=== PATIENT | male | born 1970 | race Caucasian/White ===

== ENCOUNTER 2019-07-25 03:56 | Inpatient (IN) ==
[2019-07-25] MEDS ORDERED: SODIUM CHLORIDE 0.9% 1,000 ML IV STA ×2 (03:58→04:02)
[2019-07-25] MEDS ORDERED: NOREPINEPHRINE 8 MG in SODIUM CHLORIDE 0.9% 242 ML IV PRN (04:23)
[2019-07-25] MEDS ORDERED: NOREPINEPHRINE 4 MG/4 ML VIAL IV ONE ×2 (04:25→04:28)
[2019-07-25 04:43] LABS: Basophils # 0.2 10*3/uL (0.0-0.2); Basophils % 0.7 % (0.0-0.8); Eosinophils # 0.2 10*3/uL (0.0-0.87); Eosinophils % 0.9 % (0.00-10.9); Hematocrit 46.9 VOL% (42.0-52.0); Immature Granulocytes % 3.3 %; Immature Granulocytes Absolute 0.76 #; Lymphocytes # 4.1 10*3/uL (1.4-4.0); Lymphocytes % 17.5 % (21.2-54.2); Mean Platelet Volume 10.2 FL (9.6-12.0); Monocytes % 15.6 % (1.7-12.7); NRBC # 0.02 10*3/uL; Platelet Count 513 T/CUMM (130-400); White Blood Count 23.3 T/CUMM (4-12)
[2019-07-25] MEDS ORDERED: CEFEPIME 2,000 MG in SODIUM CHLORIDE 0.9% 100 ML IV STA (04:50)
[2019-07-25] MEDS ORDERED: VANCOMYCIN INJ 1,000 MG in SODIUM CHLORIDE 0.9% 250 ML IV STA (04:50)
[2019-07-25 04:57] LABS: Band Neutrophils 3 % (0-10); Eosinophils 2 % (0-10); Lymphocytes 16 % (20-55); Platelet Estimate Adequate; Segmented Neutrophils 72 % (50-85); Total Cells Counted 100
[2019-07-25] MEDS ORDERED: CEFEPIME 2,000 MG VIAL ONE (05:21)
[2019-07-25 06:11] LABS: Alkaline Phosphatase 91 U/L (45-117)
[2019-07-25 06:12] LABS: Alanine Aminotransferase 31 U/L (16-61); Albumin 3.4 G/DL (3.4-5.0); Aspartate Amino Transferase 80 U/L (0-37); Bilirubin,Total 0.53 MG/DL (0.2-1.0); Total Protein 7.8 G/DL (6.4-8.3)
[2019-07-25 06:13] LABS: Blood Urea Nitrogen 22 MG/DL (7-18); Glucose 357 MG/DL (74-106); Osmolality,Calculated 271.2 MOS/KG (273-304)
[2019-07-25 06:15] LABS: Calcium 9.5 MG/DL (8.5-10.1)
[2019-07-25 06:55] LABS: Risk Ratio 9.97; VLDL CHOLESTEROL 428.4 MG/DL
[2019-07-25 06:57] LABS: Apearance,Urine CLEAR (Clear); Bilirubin,Urine Negative (Negative); Blood, Urine Moderate mg/dL (Negative); Glucose,Urine (UA) >=500 mg/dL (Negative); Ketones,Urine Negative (Negative); Mucus,Urine Occasional /LPF (Occasional); Nitrite,Urine Negative (Negative); Protein,Urine 30 MG/DL; Squamous Epithelial Cell,Urine Occasional /HPF (0-10); Urine Color Straw (Yellow); Urine Specific Gravity 1.008 (1.001-1.035); Urine Urobilinogen < 2.0 EU/DL (0.2-1.0); WBC,Urine 1 /HPF (0-6)
[2019-07-25] MEDS ORDERED: MORPHINE 4 MG/1 ML VIAL IV PRN (07:30)
[2019-07-25] MEDS ORDERED: ACETAMINOPHEN 325 MG TABLET PO PRN (07:30)
[2019-07-25] MEDS ORDERED: ALBUTEROL 2.5 MG/3 ML NEB RESP TX PRN (07:30)
[2019-07-25] MEDS ORDERED: ONDANSETRON 4 MG/2 ML VIAL IV PRN (07:30)
[2019-07-25] MEDS ORDERED: SODIUM CHLORIDE 0.9% 1,000 ML IV SCH ×2 (07:30→09:00)
[2019-07-25 07:49] LABS: Hemoglobin 16.2 GM/DL (14.0-18.0); Red Blood Count 4.69 MC/CUMM (3.8-5.5)
[2019-07-25 07:51] LABS: Mean Corpuscular HGB Conc 35.1 GM/DL (32-36); Mean Corpuscular Volume 98.5 FL (87-102); Red Cell Distribution Width 13.8 % (9.3-17.3)
[2019-07-25] MEDS ORDERED: FAMOTIDINE 20 MG/2 ML VIAL IV SCH ×2 (08:00→09:00)
[2019-07-25] MEDS ORDERED: VANCOMYCIN INJ 1,000 MG in SODIUM CHLORIDE 0.9% 250 ML IV ONE (08:00)
[2019-07-25 08:20] LABS: INR 0.9; Partial Thromboplastin Time 24.6 SECS (20.8-36.0)
[2019-07-25 08:21] LABS: PT Patient Result 9.5 SECS (9.6-12.2)
[2019-07-25 08:51] LABS: ABG Base Excess -0.8 MMOL/L (-2.5-2.5); ABG HCO3 23.7 MMOL/L (20-26); ABG PCO2 49.7 MM HG (35-48); ABG PH 7.329 (7.35-7.45); ABG TCO2 22.1 MMOL/L (23-27); Allen Test Positive
[2019-07-25] MEDS: DEXTROSE 5% NACL 0.9% 1,000 ML IV SCH ×4 (09:01→23:45)
[2019-07-25] MEDS: ENOXAPARIN 40 MG/0.4 ML SYRINGE SUBCUT SCH (10:14)
[2019-07-25 10:20] LABS: Barbiturates Screen,Urine Negative (Negative); Benzodiazepines Screen,Urine Positive (Negative); Cannabinoid Screen,Urine Negative (Negative); Opiate Screen,Urine Positive (Negative); Phencyclidine Screen,Urine Negative (Negative)
[2019-07-25] MEDS: INSULIN REGULAR DRIP 100 ML IV PRN ×2 (10:28→22:03)
[2019-07-25] MEDS: PIPERACILLIN/TAZOBACTAM 3,375 MG in SODIUM CHLORIDE 0.9% 100 ML IV SCH ×2 (10:42→15:56)
[2019-07-25 10:56] LABS: Calcium 7.2 MG/DL (8.5-10.1); Osmolality,Calculated 282.4 MOS/KG (273-304)
[2019-07-25] MEDS: HYDROmorphone 2 MG/1 ML VIAL IV PRN ×4 (12:46→22:10)
[2019-07-25] MEDS ORDERED: CALCIUM GLUCONATE 2,000 MG in SODIUM CHLORIDE 0.9% 100 ML IV ONE (14:30)
[2019-07-25] MEDS: DESITIN 4OZ/NYSTATIN 15 GRAM MIXTURE PASTE TOP SCH ×2 (15:53→21:42)
[2019-07-25 17:31] LABS: Osmolality,Calculated 318.3 MOS/KG (273-304)
[2019-07-25 17:33] LABS: Calcium 7.9 MG/DL (8.5-10.1)
[2019-07-25] MEDS: LACTULOSE 20 GM/30 ML UDCUP PO SCH (21:02)
[2019-07-25] MEDS: PANTOPRAZOLE 40 MG VIAL IV SCH (21:03)
[2019-07-25] MEDS: DIAZEPAM 5 MG TABLET PO SCH (21:03)
[2019-07-25] MEDS ORDERED: VANCOMYCIN INJ 1,750 MG in SODIUM CHLORIDE 0.9% 500 ML IV SCH (22:00)
[2019-07-25 23:02] LABS: Calcium 7.7 MG/DL (8.5-10.1); Osmolality,Calculated 280.5 MOS/KG (273-304)
[2019-07-26] MEDS: PIPERACILLIN/TAZOBACTAM 3,375 MG in SODIUM CHLORIDE 0.9% 100 ML IV SCH ×4 (00:26→23:58)
[2019-07-26] MEDS ORDERED: NICOTINE 21 MG/24 HR PATCH TRANSDERM PRN (00:37)
[2019-07-26] MEDS: DEXTROSE 5% NACL 0.9% 1,000 ML IV SCH ×3 (00:39→10:05)
[2019-07-26] MEDS: HYDROmorphone 2 MG/1 ML VIAL IV PRN ×8 (01:20→23:55)
[2019-07-26 04:24] LABS: Basophils # 0.1 10*3/uL (0.0-0.2); Basophils % 0.5 % (0.0-0.8); Eosinophils # 0.2 10*3/uL (0.0-0.87); Eosinophils % 2.1 % (0.00-10.9); Hematocrit 42.7 VOL% (42.0-52.0); Immature Granulocytes % 1.7 %; Immature Granulocytes Absolute 0.18 #; Lymphocytes # 3.1 10*3/uL (1.4-4.0); Lymphocytes % 28.8 % (21.2-54.2); Mean Corpuscular HGB Conc 34.4 GM/DL (32-36); Mean Corpuscular Volume 99.3 FL (87-102); Mean Platelet Volume 10.2 FL (9.6-12.0); Monocytes % 7.9 % (1.7-12.7); Red Cell Distribution Width 13.8 % (9.3-17.3)
[2019-07-26 05:07] LABS: INR 0.9; PT Patient Result 9.8 SECS (9.6-12.2)
[2019-07-26 05:31] LABS: Platelet Count 257 T/CUMM (130-400); White Blood Count 10.7 T/CUMM (4-12)
[2019-07-26 05:33] LABS: Hemoglobin 14.7 GM/DL (14.0-18.0)
[2019-07-26 06:50] LABS: Albumin 2.7 G/DL (3.4-5.0); Bilirubin,Total 0.6 MG/DL (0.2-1.0); Calcium 7.7 MG/DL (8.5-10.1); Osmolality,Calculated 280.4 MOS/KG (273-304)
[2019-07-26 07:01] LABS: Total Protein 5.1 G/DL (6.4-8.3)
[2019-07-26] MEDS: DIAZEPAM 5 MG TABLET PO SCH ×2 (08:50→21:02)
[2019-07-26] MEDS: LACTULOSE 20 GM/30 ML UDCUP PO SCH ×2 (08:51→21:03)
[2019-07-26] MEDS: ENOXAPARIN 40 MG/0.4 ML SYRINGE SUBCUT SCH (08:52)
[2019-07-26] MEDS: PANTOPRAZOLE 40 MG VIAL IV SCH ×2 (08:52→21:03)
[2019-07-26] MEDS: DESITIN 4OZ/NYSTATIN 15 GRAM MIXTURE PASTE TOP SCH ×2 (09:01→21:03)
[2019-07-26 09:21] LABS: Osmolality,Calculated 282.1 MOS/KG (273-304)
[2019-07-26] MEDS: GEMFIBROZIL 600 MG TABLET PO SCH ×2 (11:48→21:03)
[2019-07-26] MEDS: INSULIN REGULAR 100 UNIT/ML SUBCUT SCH ×3 (11:55→21:06)
[2019-07-26] MEDS: SODIUM CHLORIDE 0.45% 1,000 ML IV SCH ×2 (13:21→19:29)
[2019-07-26 18:31] LABS: Osmolality,Calculated 269.2 MOS/KG (273-304)
[2019-07-26 22:52] LABS: Osmolality,Calculated 273.1 MOS/KG (273-304)
[2019-07-27] MEDS: INSULIN REGULAR 100 UNIT/ML SUBCUT SCH ×7 (00:21→23:27)
[2019-07-27] MEDS: SODIUM CHLORIDE 0.45% 1,000 ML IV SCH ×4 (02:11→16:12)
[2019-07-27] MEDS: HYDROmorphone 2 MG/1 ML VIAL IV PRN ×5 (04:11→20:26)
[2019-07-27 04:43] LABS: Basophils % 0.4 % (0.0-0.8); Eosinophils # 0.2 10*3/uL (0.0-0.87); Eosinophils % 3.4 % (0.00-10.9); Hematocrit 41.8 VOL% (42.0-52.0); Hemoglobin 14.4 GM/DL (14.0-18.0); Immature Granulocytes % 1.6 %; Immature Granulocytes Absolute 0.11 #; Lymphocytes # 2.1 10*3/uL (1.4-4.0); Lymphocytes % 31.2 % (21.2-54.2); Mean Corpuscular HGB Conc 34.4 GM/DL (32-36); Mean Corpuscular Volume 98.8 FL (87-102); Mean Platelet Volume 10.1 FL (9.6-12.0); Monocytes % 8.6 % (1.7-12.7); Neutrophils % 54.8 % (38.7-73.9); Platelet Count 204 T/CUMM (130-400); Red Blood Count 4.23 MC/CUMM (3.8-5.5); Red Cell Distribution Width 13.1 % (9.3-17.3); White Blood Count 6.8 T/CUMM (4-12)
[2019-07-27 04:48] LABS: INR 0.9; PT Patient Result 9.9 SECS (9.6-12.2)
[2019-07-27 05:29] LABS: Osmolality,Calculated 272.2 MOS/KG (273-304)
[2019-07-27] MEDS: PIPERACILLIN/TAZOBACTAM 3,375 MG in SODIUM CHLORIDE 0.9% 100 ML IV SCH ×3 (08:14→23:27)
[2019-07-27] MEDS: DIAZEPAM 5 MG TABLET PO SCH ×2 (09:03→20:27)
[2019-07-27] MEDS: GEMFIBROZIL 600 MG TABLET PO SCH ×2 (09:03→20:27)
[2019-07-27] MEDS: ENOXAPARIN 40 MG/0.4 ML SYRINGE SUBCUT SCH (09:04)
[2019-07-27] MEDS: LACTULOSE 20 GM/30 ML UDCUP PO SCH ×2 (09:04→20:26)
[2019-07-27] MEDS: DESITIN 4OZ/NYSTATIN 15 GRAM MIXTURE PASTE TOP SCH ×2 (09:16→20:27)
[2019-07-27] MEDS: PANTOPRAZOLE 40 MG VIAL IV SCH (09:26)
[2019-07-27] MEDS: PANTOPRAZOLE 40 MG TABLET PO SCH (16:13)
[2019-07-27] MEDS: PROMETHAZINE 25 MG/1 ML VIAL IM PRN ×2 (16:14→23:28)
[2019-07-27] MEDS ORDERED: INSULIN NPH/REGULAR 70/30 100 UNIT/ML SUBCUT SCH (16:30)
[2019-07-27] MEDS ORDERED: NIACIN ER 500 MG TABLET PO SCH (21:00)
[2019-07-27] MEDS ORDERED: INSULIN GLARGINE 100 UNIT/ML SUBCUT SCH (21:00)
[2019-07-28] MEDS: HYDROmorphone 2 MG/1 ML VIAL IV PRN ×4 (02:17→12:17)
[2019-07-28] MEDS: INSULIN REGULAR 100 UNIT/ML SUBCUT SCH ×3 (04:12→12:18)
[2019-07-28] MEDS: PROMETHAZINE 25 MG/1 ML VIAL IM PRN ×2 (05:33→12:17)
[2019-07-28] MEDS: SODIUM CHLORIDE 0.45% 1,000 ML IV SCH (05:34)
[2019-07-28 06:16] LABS: INR 0.9; PT Patient Result 9.3 SECS (9.6-12.2)
[2019-07-28] MEDS ORDERED: INSULIN NPH 100 UNIT/ML SUBCUT SCH (07:30)
[2019-07-28] MEDS: ENOXAPARIN 40 MG/0.4 ML SYRINGE SUBCUT SCH (08:46)
[2019-07-28] MEDS: GEMFIBROZIL 600 MG TABLET PO SCH (08:46)
[2019-07-28] MEDS: PANTOPRAZOLE 40 MG TABLET PO SCH (08:46)
[2019-07-28] MEDS: PIPERACILLIN/TAZOBACTAM 3,375 MG in SODIUM CHLORIDE 0.9% 100 ML IV SCH (08:46)
[2019-07-28] MEDS: LACTULOSE 20 GM/30 ML UDCUP PO SCH (08:46)
[2019-07-28] MEDS: DIAZEPAM 5 MG TABLET PO SCH (08:46)
[2019-07-28] MEDS: DESITIN 4OZ/NYSTATIN 15 GRAM MIXTURE PASTE TOP SCH (09:00)
[2019-07-28 09:10] VITALS: BP 128/73
[2019-07-28] MEDS ORDERED: ASPIRIN 325 MG TABLET PO SCH (20:30)
== END 2019-07-28 12:38 | disposition home or self-care (01) | DRG 871 ==
LOC: N.ED 03:56 → SUATTDRO 07:30 → N.EDINP 07:30 → N.ICU 07:54 → N.5E 07-26 15:49
PROVIDERS: ADMIT Internal Medicine; ATTEND Internal Medicine

== ENCOUNTER 2020-01-03 13:02 | Inpatient (IN) ==
[2020-01-03 13:22] LABS: Basophils # 0.1 10*3/uL (0.0-0.2); Basophils % 0.5 % (0.0-0.8); Eosinophils # 0.1 10*3/uL (0.0-0.87); Eosinophils % 0.7 % (0.00-10.9); Hematocrit 53.3 VOL% (42.0-52.0); Hemoglobin 19.1 GM/DL (14.0-18.0); Immature Granulocytes % 0.4 %; Immature Granulocytes Absolute 0.04 #; Lymphocytes # 2.5 10*3/uL (1.4-4.0); Lymphocytes % 26.4 % (21.2-54.2); Mean Corpuscular HGB Conc 35.8 GM/DL (32-36); Mean Platelet Volume 10.2 FL (9.6-12.0); Monocytes % 5.6 % (1.7-12.7); Neutrophils % 66.4 % (38.7-73.9); Platelet Count 232 T/CUMM (130-400); Red Blood Count 5.61 MC/CUMM (3.8-5.5); Red Cell Distribution Width 12.4 % (9.3-17.3); White Blood Count 9.6 T/CUMM (4-12)
[2020-01-03 14:18] LABS: Albumin 3.4 G/DL (3.4-5.0); Bilirubin,Total 0.7 MG/DL (0.2-1.0); Calcium 8.8 MG/DL (8.5-10.1); Osmolality,Calculated 275.2 MOS/KG (273-304); Total Protein 6.7 G/DL (6.4-8.3)
[2020-01-03] MEDS ORDERED: ASPIRIN 325 MG TABLET PO STA (14:29)
[2020-01-03] MEDS ORDERED: INSULIN LISPRO 100 UNIT/ML SUBCUT STA (14:29)
[2020-01-03] MEDS ORDERED: NITROGLYCERIN 2% OINT 1 INCH/GM PACK TOP STA (14:30)
[2020-01-03] MEDS ORDERED: ENOXAPARIN 100 MG/ML SYRINGE SUBCUT STA (14:30)
[2020-01-03] MEDS ORDERED: MORPHINE 4 MG/1 ML VIAL IV STA (14:34)
[2020-01-03] MEDS ORDERED: ONDANSETRON 4 MG/2 ML VIAL IV STA (14:34)
[2020-01-03] MEDS ORDERED: NICOTINE 21 MG/24 HR PATCH TRANSDERM PRN (16:01)
[2020-01-03] MEDS ORDERED: guaiFENesin/DM ER 600-30 MG TABLET PO PRN (16:01)
[2020-01-03] MEDS ORDERED: ZALEPLON 5 MG CAPSULE PO PRN (16:01)
[2020-01-03] MEDS ORDERED: ONDANSETRON 4 MG/2 ML VIAL IV PRN (16:01)
[2020-01-03] MEDS ORDERED: ACETAMINOPHEN 325 MG TABLET PO PRN (16:01)
[2020-01-03] MEDS ORDERED: diphenhydrAMINE CAP 25 MG CAPSULE PO PRN (16:01)
[2020-01-03] MEDS ORDERED: GLUCAGON 1 MG VIAL IM PRN ×2 (16:01)
[2020-01-03] MEDS ORDERED: DOCUSATE SODIUM 100 MG CAPSULE PO PRN (16:01)
[2020-01-03] MEDS ORDERED: DEXTROSE 50% 25 GM/50 ML VIAL IV PRN ×2 (16:01)
[2020-01-03] MEDS ORDERED: BISACODYL 5 MG TABLET PO PRN (16:01)
[2020-01-03] MEDS ORDERED: PROMETHAZINE 25 MG TABLET PO PRN (16:01)
[2020-01-03] MEDS ORDERED: ALUM/MAG/SIMETH/LIDO VISC 1:1 30 ML BOTTLE PO STA (16:07)
[2020-01-03] MEDS ORDERED: NITROGLYCERIN SL 0.4 MG TABLET SL PRN (16:13)
[2020-01-03] MEDS ORDERED: ENOXAPARIN 40 MG/0.4 ML SYRINGE SUBCUT SCH (16:30)
[2020-01-03] MEDS: INSULIN LISPRO 100 UNIT/ML SUBCUT SCH ×2 (19:09→22:01)
[2020-01-03] MEDS ORDERED: METOPROLOL TARTRATE 25 MG TABLET PO SCH (21:00)
[2020-01-03] MEDS: PANTOPRAZOLE 40 MG TABLET PO SCH (22:00)
[2020-01-04] MEDS: BISOPROLOL 5 MG TABLET PO SCH ×3 (00:32→20:40)
[2020-01-04] MEDS ORDERED: ENOXAPARIN 100 MG/ML SYRINGE SUBCUT ONE (02:30)
[2020-01-04 05:50] LABS: Basophils % 0.5 % (0.0-0.8); Eosinophils # 0.1 10*3/uL (0.0-0.87); Eosinophils % 1.5 % (0.00-10.9); Hematocrit 47.5 VOL% (42.0-52.0); Immature Granulocytes % 0.6 %; Immature Granulocytes Absolute 0.05 #; Lymphocytes # 3.6 10*3/uL (1.4-4.0); Lymphocytes % 44.1 % (21.2-54.2); Mean Corpuscular HGB Conc 35.8 GM/DL (32-36); Mean Corpuscular Volume 96.5 FL (87-102); Mean Platelet Volume 11.6 FL (9.6-12.0); Monocytes % 7.6 % (1.7-12.7); Neutrophils % 45.7 % (38.7-73.9); Platelet Count 236 T/CUMM (130-400); Red Blood Count 4.92 MC/CUMM (3.8-5.5); Red Cell Distribution Width 13.2 % (9.3-17.3); White Blood Count 8.1 T/CUMM (4-12)
[2020-01-04] MEDS ORDERED: MAGNESIUM SULF RIDER 2 GM in PREMIX 1 EACH IV PRN (08:05)
[2020-01-04] MEDS ORDERED: diphenhydrAMINE CAP 25 MG CAPSULE PO ONE (08:05)
[2020-01-04] MEDS ORDERED: POTASSIUM CHLORIDE RIDER 10 MEQ in PREMIX 1 EACH IV PRN (08:05)
[2020-01-04] MEDS ORDERED: DIAZEPAM 5 MG TABLET PO ONE (08:05)
[2020-01-04 08:39] LABS: Albumin 3.1 G/DL (3.4-5.0); Bilirubin,Total 0.8 MG/DL (0.2-1.0); Calcium 8.1 MG/DL (8.5-10.1); Osmolality,Calculated 269.8 MOS/KG (273-304); Risk Ratio 13.6; Thyroid Stimulating Hormone 0.572 uIU/ml (0.358-3.74); Total Protein 6.5 G/DL (6.4-8.3); VLDL CHOLESTEROL 576.8 MG/DL
[2020-01-04] MEDS ORDERED: PANTOPRAZOLE 40 MG TABLET PO SCH (09:00)
[2020-01-04] MEDS ORDERED: ASPIRIN EC 81 MG TABLET PO SCH (09:00)
[2020-01-04] MEDS ORDERED: ASPIRIN CHEW 81 MG TABLET PO ONE (09:41)
[2020-01-04] MEDS: SODIUM CHLORIDE 0.9% 1,000 ML IV SCH ×3 (09:52→21:30)
[2020-01-04] MEDS: PANTOPRAZOLE 40 MG TABLET PO SCH (10:05)
[2020-01-04] MEDS: FENOFIBRATE 145 MG TABLET PO SCH (10:05)
[2020-01-04] MEDS: INSULIN LISPRO 100 UNIT/ML SUBCUT SCH ×4 (10:09→20:42)
[2020-01-04] MEDS ORDERED: MIDAZOLAM 2 MG/2 ML VIAL ONE (13:20)
[2020-01-04] MEDS ORDERED: LIDOCAINE 1% 20 ML VIAL ONE (13:20)
[2020-01-04] MEDS ORDERED: fentaNYL 100 MCG/2 ML VIAL ONE (13:20)
[2020-01-04] MEDS ORDERED: HEPARIN 5,000 UNIT/1 ML VIAL ONE ×2 (14:05→14:52)
[2020-01-04] MEDS ORDERED: TIROFIBAN 5,000 MCG/100 ML PREMIX IV ONE (14:16)
[2020-01-04] MEDS ORDERED: TIROFIBAN 5,000 MCG/100 ML PREMIX IV SCH (14:24)
[2020-01-04] MEDS ORDERED: NITROGLYCERIN DRIP 50 MG/250 ML BOTTLE IV ONE (14:45)
[2020-01-04] MEDS ORDERED: TICAGRELOR 90 MG TABLET ONE (15:08)
[2020-01-04 16:28] LABS: Troponin I < 0.015 NG/ML (0.00-0.045)
[2020-01-04] MEDS ORDERED: ENOXAPARIN 40 MG/0.4 ML SYRINGE SUBCUT SCH (18:00)
[2020-01-04] MEDS: TICAGRELOR 90 MG TABLET PO SCH (20:40)
[2020-01-04] MEDS ORDERED: MECLIZINE 25 MG TABLET PO SCH (21:00)
[2020-01-04] MEDS ORDERED: ROSUVASTATIN 10 MG TABLET PO SCH (21:00)
[2020-01-05 00:10] LABS: Troponin I < 0.015 NG/ML (0.00-0.045)
[2020-01-05 06:23] LABS: Basophils % 0.4 % (0.0-0.8); Eosinophils # 0.1 10*3/uL (0.0-0.87); Eosinophils % 0.9 % (0.00-10.9); Hematocrit 48.8 VOL% (42.0-52.0); Hemoglobin 16.8 GM/DL (14.0-18.0); Immature Granulocytes % 0.8 %; Immature Granulocytes Absolute 0.07 #; Lymphocytes # 2.8 10*3/uL (1.4-4.0); Lymphocytes % 30.3 % (21.2-54.2); Mean Corpuscular HGB Conc 34.4 GM/DL (32-36); Mean Corpuscular Volume 97.6 FL (87-102); Mean Platelet Volume 10.4 FL (9.6-12.0); Monocytes % 8.4 % (1.7-12.7); Neutrophils % 59.2 % (38.7-73.9); Platelet Count 224 T/CUMM (130-400); Red Cell Distribution Width 12.5 % (9.3-17.3); White Blood Count 9.2 T/CUMM (4-12)
[2020-01-05 06:58] LABS: Calcium 7.6 MG/DL (8.5-10.1); Osmolality,Calculated 271.4 MOS/KG (273-304)
[2020-01-05 07:20] LABS: Troponin I 0.022 NG/ML (0.00-0.045)
[2020-01-05 08:37] VITALS: BP 131/73
[2020-01-05] MEDS ORDERED: ASPIRIN CHEW 81 MG TABLET PO SCH (09:00)
[2020-01-05] MEDS: INSULIN LISPRO 100 UNIT/ML SUBCUT SCH (09:23)
[2020-01-05] MEDS: BISOPROLOL 5 MG TABLET PO SCH (09:24)
[2020-01-05] MEDS: TICAGRELOR 90 MG TABLET PO SCH (09:24)
[2020-01-05] MEDS: FENOFIBRATE 145 MG TABLET PO SCH (09:24)
[2020-01-05] MEDS: PANTOPRAZOLE 40 MG TABLET PO SCH (09:25)
== END 2020-01-05 12:13 | disposition home or self-care (01) | DRG 247 ==
LOC: N.ED 13:02 → N.EDINP 16:01 → SUPCPDRO 16:01 → N.EDINP 18:10 → N.TELEN 18:17
PROVIDERS: ADMIT Internal Medicine Geriatric Medicine; ATTEND Internal Medicine Geriatric Medicine
PROC: CLCCHCL (ICD-10-PCS; 2020-01-04 12:45)